=== PATIENT | female | born 1985 | race Caucasian/White ===

== ENCOUNTER 2016-12-20 08:44 | Inpatient (IN) | payer OTHER ==
[~2016-12-20] VITALS: Ht 162.6 cm; Wt 97.5 kg
[2016-12-20 13:37] LABS: HEMOGLOBIN 11.4 gm/dl (12.3-15.3); RED BLOOD COUNT 3.99 M/UL (4.00-5.10); WHITE BLOOD COUNT 11.8 K/UL (4.5-11.0)
[2016-12-21 03:09] LABS: HEMOGLOBIN 13.2 gm/dl (12.3-15.3)
[2016-12-21] MEDS ORDERED: COLACE 100MG C100 MG PO (09:15)
== END 2016-12-21 09:02 | disposition home or self-care (01) | DRG 774 ==
LOC: GENOP 08:44 → OB 13:18
PROVIDERS: Obstetrics & Gynecology; ADMIT Obstetrics & Gynecology
PROC: 10E0XZZ Delivery of Products of Conception, External Approach (ICD-10-PCS; principal; 2016-12-20)
PROC: 0KQM0ZZ Repair Perineum Muscle, Open Approach (ICD-10-PCS; 2016-12-20)
PROC: 10H073Z Insertion of Monitoring Electrode into Products of Conception, Via Natural or Artificial Opening (ICD-10-PCS; 2016-12-20)
PROC: 10907ZC Drainage of Amniotic Fluid, Therapeutic from Products of Conception, Via Natural or Artificial Opening (ICD-10-PCS; 2016-12-20)
PROC: 10H07YZ Insertion of Other Device into Products of Conception, Via Natural or Artificial Opening (ICD-10-PCS; 2016-12-20)
DX: O41.1230 Chorioamnionitis, third trimester, not applicable or unspecified (principal); O90.1 Disruption of perineal obstetric wound; O99.824 Streptococcus B carrier state complicating childbirth; Z37.0 Single live birth; O69.81X0 Labor and delivery complicated by cord around neck, without compression, not applicable or unspecified; O77.0 Labor and delivery complicated by meconium in amniotic fluid; Z79.899 Other long term (current) drug therapy; Z3A.40 40 weeks gestation of pregnancy
CPT/HCPCS: 36415; 51702; 82800; 85014; 85018; 85025; J1580; J2210; J2300; J2405; J2550; J2590; J2795; J3010; J7030; J7120